=== PATIENT | male | born 1960 | race Two or more races ===

== ENCOUNTER 2024-04-22 15:37 | Inpatient (IN) | payer OTHER ==
[~2024-04-22] VITALS: Ht 180.3 cm; Wt 95.3 kg
[2024-04-22] MEDS ORDERED: SYNJARDY 12.5-1 EACH (15:58)
[2024-04-22] MEDS ORDERED: AMLODIPINE-OLM1 EAC2 (15:59)
[2024-04-22 16:01] VITALS: O2SAT 98
[2024-04-22] MEDS ORDERED: 0.9 % SODIUM CHLORIDE 1,000 ML IV SCH ×2 (16:45→21:15)
[2024-04-22] MEDS ORDERED: ACETAMINOPHEN 500 MG GEL..CAP PO ONE (16:45)
[2024-04-22 17:25] LABS: HEMOGLOBIN 16.3 g/dL (13-16.00); MEAN CELL VOLUME 90.1 fL (80.0-100.00); MEAN CORPUSCULAR HEMOGLOBIN 31.9 pg (27.00-32.0); MEAN CORPUSCULAR HGB CONC 35.4 g/dl (32.0-36.0); RED BLOOD COUNT 5.11 M/uL (4.00-6.00); RED CELL DISTRIBUTION WIDTH 13.2 % (11.5-14.5)
[2024-04-22 17:44] LABS: ALBUMIN 3.1 gm/dL (3.4-5.0); ALKALINE PHOSPHATASE 56 U/L (50-136); ALT/SGPT 40 U/L (12-78); ANION GAP 10 (10.0-20.0); AST/SGOT 66 U/L (15-37); BILIRUBIN TOTAL 0.47 mg/dL (0.3-1.2); BILIRUBIN,CONJUGATED < 0.10 mg/dL (0.0-0.2); BILIRUBIN,UNCONJUGATED 0.37 mg/dL (0.0-0.6); BLOOD UREA NITROGEN 13 mg/dL (7-18); BUN CREA RATIO 15 (7.0-25.0); CALCIUM 8.5 mg/dL (8.5-10.1); CARBON DIOXIDE 31 mEq/L (21-32); CHLORIDE 96 mmol/L (98-107); CREATININE SERUM 0.87 mg/dL (0.70-1.30); GFR 89.21; GLUCOSE FASTING 133 mg/dL (65-100); OSMOLALITY SERUM 268 MOSM/KG (275-295); POTASSIUM 4.09 mEq/L (3.5-5.1); SODIUM 133 mmol/L (136-145); TOTAL PROTEIN 7.1 gm/dL (6.4-8.2)
[2024-04-22 17:53] LABS: PLATELET COUNT 57 K/uL (150-450)
[2024-04-22 19:00] VITALS: BP 123/70
[2024-04-22 21:53] LABS: INR 1.02; PARTIAL THROMBOPLASTIN TIME 32.8 SECONDS (22.0-34.0); PROTHROMBIN TIME 11.1 SECONDS (9.0-11.5)
[2024-04-23] MEDS ORDERED: PANTOPRAZOLE SODIUM 40 MG/VIAL VIAL IV SCH (09:00)
[2024-04-23] MEDS ORDERED: PATIENTS OWN MEDICATION (MEDICAMENTO EN PISO) PO SCH ×2 (09:00)
== END 2024-04-23 01:00 | disposition left against medical advice (07) | DRG 866 ==
LOC: ER 15:39 → SEC-K 21:41 → MEDI 21:41 → SEC-K 23:21
PROVIDERS: General Practice; ADMIT Internal Medicine; ATTEND Internal Medicine
DX: A90 Dengue fever [classical dengue] (principal); D69.49 Other primary thrombocytopenia; B34.9 Viral infection, unspecified; Z20.822 Contact with and (suspected) exposure to COVID-19; Z53.29 Procedure and treatment not carried out because of patient's decision for other reasons